=== PATIENT | female | born 1935 | race Caucasian/White ===

== ENCOUNTER 2016-10-25 12:45 | Observation (INO) | payer MEDICARE, OTHER ==
--- NOTE | ~2016-10-25 | DS ---
Discharge Summary [facility] [address] [place]. [address] NAME: ARI VILLAVICENCIO : 37 STATUS : DIS Loco PAT#: [id number] AGE: 80 ADM/REG DATE : 10/25/16 MR#: [id number] REPORT SERV DATE: 10/27/16 DICTATED BY: JR. KING WILLIAM JOHN DATE: 10/26/16 REPORT STATUS : Draft TRANSCRIBED BY: MODShahid DATE: 10/26/16 ADMISSION DATE: 10/25/2016 DISCHARGE DATE: 10/26/2016 DISCHARGE DIAGNOSES: 1. Atypical chest pain. 2. History of kidney transplant. 3. Hypertension. 4. History of aortic stenosis. OPERATIONS, PROCEDURES, AND TREATMENTS: Includes CT angiogram chest, done 10/25/2015, which showed no CTA evidence of pulmonary embolism. There was focal fibrosis or subsegmental atelectasis of the right middle lobe. There was moderately large 6 cm hiatal hernia. 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 CONSULTING PHYSICIAN: Dr. Mercado of Cardiology. DISCHARGE MEDICATIONS: Include: 1. Xanax 0.25 mg orally twice a day. 2. Vitamin B12 1000 mcg orally daily. 3. Cyclosporine 25 mg twice a day. 4. Vitamin D 50,000 units every Wednesday. 5. Metoprolol 12.5 mg orally twice a day. 6. Protonix 40 mg orally daily. 7. Coumadin 5 mg orally daily. 8. Hydralazine 25 mg every eight hours. 9. Prednisone 10 mg orally daily. 10.Albuterol metered-dose inhaler as needed. 11.[place] 10/325 t.i.d. p.r.n. 12.Integra Plus vitamin twice a day. HOSPITAL COURSE: The patient is a 80-year-old white female, presented to the emergency room on 10/25/2016 with complaint of chest pain. It was rated as 8/10, sharp, nonradiating, but had resolved by the time she was seen by Dr. Yoon in the emergency room. The patient's exam was remarkable for hypertension, CT angiogram of the chest which showed no evidence of pulmonary embolism or other acute pathology. EKG with sinus rhythm without acute ST or T- wave changes. The patient is admitted to the Clinical Decision Unit. She had serial cardiac enzymes that were unremarkable and was seen by Dr. Mercado of Cardiology who felt the patient could follow up with him in five weeks. She did have hydralazine added to her regimen. The remainder of the patient's health problems were stable and were not addressed. For discharge exam and laboratory, please see daily progress note. DISCHARGE DIET: Regular. Discharge Summary [address] [place]. [address] NAME: ARI VILLAVICENCIO : 37 STATUS : DIS Loco PAT#: [id number] AGE: 80 ADM/REG DATE : 10/25/16 MR#: [id number] REPORT SERV DATE: 10/27/16 DICTATED BY: JR. KING WILLIAM JOHN DATE: 10/26/16 REPORT STATUS : Draft TRANSCRIBED BY: EDUARDO DATE: 10/26/16 ACTIVITY: As tolerated. WJF/EDUARDO Jacob King Jr, MD / [id number]
--- NOTE | ~2016-10-25 | HP ---
History And Physical [place] [id number] [facility] [place]. [address] NAME: HANK MILLER : 37 STATUS : ADM Loco PAT#: [id number] AGE: 80 ADM/REG DATE : 10/25/16 MR#: [id number] REPORT SERV DATE: 10/25/16 DICTATED BY: FAVIO FRANCO DATE: 10/25/16 REPORT STATUS : Draft TRANSCRIBED BY: MODL DATE: 10/25/16 DATE OF ADMISSION: 10/25/2016 HISTORY OF PRESENT ILLNESS: This is a 80-year-old female, Hank Miller, who presented to [facility] [place] because of the chest pain that she developed earlier during the day. The patient reported that the pain was in the left side of her chest on a scale from 1 to 10 was 8, it lasted for several minutes, it was on the left side of the chest, it was sharp in character, and it was not radiating to left arm. The patient said it reminded her pain when she had her pulmonary embolism last year. Right now, her pain has gone. She denies any shortness of breath at rest, but she had shortness of breath on exertion, and she did not have any pain on palpation of the left chest, the pain was shooting in character, and now the pain has resolved. The patient denies any fever. No rash. No headache on admission, but currently she developed headache, and her blood pressure was elevated on presentation, it was 179/67. Dr. Leger, emergency room physician, saw this patient before I saw her and he did a CTA on the chest on this patient before hospitalist saw her. All 14-point review of systems done and negative except what is stated in the history of present illness. PAST MEDICAL HISTORY: Known for history of bilateral pulmonary embolism in May this year when the patient was in ICU, history of kidney transplantation in 2001, history of before left lower extremity DVT, polycystic kidney disease. She had a transplant for polycystic kidney disease. Hypertension, hyperlipidemia, gastroesophageal reflux disease, osteoporosis, vulvar dysplasia, status post resection, L1 compression fracture, chronic lower extremity edema. PAST SURGICAL HISTORY: Includes renal transplantation, vulvectomy, cholecystectomy, left total hip replacement, appendectomy, abdominal hysterectomy, and kyphoplasty. Her echocardiogram was done on 06/14/2016 and it showed left ventricular function to be 60%, borderline left ventricular hypertrophy, moderate diastolic dysfunction, mild left atrial enlargement, aortic sclerosis with moderate stenosis with peak velocity of 3.4 and 3.7 m/second, and mean gradient increased from 27 to 33 mmHg, and aortic valve area decreased from 1.1 to 0.8. Aortic stenosis is followed by bookkeeping service sales agent, Dr. Mercado. OTHER MEDICAL PROBLEMS: Include chronic ray lower extremity lymphedema. ALLERGIES: SHE IS ALLERGIC TO OXYCODONE, CEPHALEXIN, MOXIFLOXACIN, CODEINE, AND MELOXICAM. HOME MEDICATIONS: Include albuterol MDI 2 puffs inhaled p.r.n., Xanax 0.25 p.o. b.i.d., vitamin B12 of 1000 mcg daily, Neoral 25 p.o. b.i.d., vitamin D 50,000 units every Wednesday, [place] 10/325 one tablet p.o. three times daily p.r.n., iron 1 capsule twice a day, metoprolol 12.5 p.o. twice a day, Protonix 40 mg p.o. daily, prednisone 10 mg daily, and Coumadin 5 mg p.o. daily. SOCIAL HISTORY: No tobacco. No alcohol. No recreational drug use. History And Physical [address] [address] NAME: HANK MILLER : 37 STATUS : ADM Loco PAT#: [id number] AGE: 80 ADM/REG DATE : 10/25/16 MR#: [id number] REPORT SERV DATE: 10/25/16 DICTATED BY: FAVIO FRANCO DATE: 10/25/16 REPORT STATUS : Draft TRANSCRIBED BY: EDUARDO DATE: 10/25/16 FAMILY HISTORY: Brother had polycystic kidney disease. Mother with colon cancer and hypertension. Father had hypertension. REVIEW OF SYSTEMS: All 14-point review of systems done and negative except what is stated in the history of present illness. PHYSICAL EXAMINATION: GENERAL: Well-nourished, well-developed female, not in acute distress. Resting quietly. VITAL SIGNS: Initially her blood pressure was 179/67, and then on recheck after she was given metoprolol and clonidine 161/69, temperature 98, heart rate 63, respirations 16, and oxygen saturation 96% on room air. HEENT: Head atraumatic, normocephalic. Conjunctivae clear. Pupils are equal and reactive to light and accommodation. Extraocular muscles are intact. NECK: Supple. Trachea is midline. No supraclavicular or cervical lymphadenopathy. LUNGS: Clear to auscultation bilaterally with normal respiratory effort. CARDIOVASCULAR SYSTEM: Regular rate and rhythm. Positive severe 5/5 systolic ejection murmur. ABDOMEN: Soft, nontender, nondistended. Positive normoactive bowel sounds. EXTREMITIES: No clubbing, cyanosis. Trace edema. NEUROLOGIC: Awake, alert, and oriented in time, place, and person. Muscle strength is 5/5 bilaterally on upper and lower extremities. SKIN: Normal color and turgor. PSYCHIATRIC: Normal mood and affect. IMAGING STUDIES: CTA of the chest showed no evidence of pulmonary embolism, focal fibrosis or subsegmental atelectasis of the right middle lobe, moderate large 6 cm in diameter hiatal hernia, mild coronary artery calcification, mild relatively stable fusiform aneurysmal change, and ascending thoracic aorta measuring 3.8 cm diameter compared to 3.7 on 05/2016, status post cholecystectomy, chronic pattern of severe atrophy of the visible portion of the bilateral upper lobe kidney with multiple simple cysts and dystrophic calcification at the upper right kidney similar to prior CT. LABORATORY STUDIES: Sodium 145, potassium 3.7, chloride 112, carbon dioxide 23, BUN 19, creatinine 0.91, blood sugar 118, magnesium 2.3. Lipase 190, troponin less than 0.02. White count 7.9, hemoglobin 14, hematocrit 43.4, platelet count 158. PT 30. INR 2.9. EKG showed normal sinus rhythm with a rate of 63, positive voltage criteria for LVH, and inferior infarction of undetermined age. ASSESSMENT AND PLAN: 1. This is a very pleasant 80-year-old female with a past medical history of kidney transplant, history of aortic stenosis, history of bilateral pulmonary embolism in May this year, presented with chest pain. The chest pain sounds like atypical. We will check serial troponins. Dr. Leger, emergency room physician, spoke with Dr. Garaz, bookkeeping service sales agent on-call, who recommended the patient to be admitted as observation to Hospitalist, and the bookkeeping service sales agent will be consulted. We will put the History And Physical [address] [place]. [address] NAME: HANK MILLER : 37 STATUS : ADM Loco PAT#: [id number] AGE: 80 ADM/REG DATE : 10/25/16 MR#: [id number] REPORT SERV DATE: 10/25/16 DICTATED BY: FAVIO FRANCO DATE: 10/25/16 REPORT STATUS : Draft TRANSCRIBED BY: MODShahid DATE: 10/25/16 patient on observation status for the chest pain. We will check serial troponins. We will also ask bookkeeping service sales agent to see the patient. First troponin is negative less than 0.02. I would treat it symptomatically if she will have chest pain with nitroglycerin. 2. Hypertension. We will continue her blood pressure medications and give her hydralazine p.r.n. 3. History of kidney transplant with normal creatinine. Dr. Leger, emergency room physician, did CTA with contrast on her chest before even hospitalist saw her. We will just start her on gentle IV fluid hydration for her kidney function, but also we will watch her for her aortic stenosis. 4. Aortic stenosis which is followed by Dr. Mercado, currently stable. 5. Coumadin anticoagulation with therapeutic INR. Pharmacy will take care of the Coumadin anticoagulation. My partner will see this patient starting tomorrow morning. MG/MODL Favio Franco M.D. / [id number] CC: Jacob King Jr, MD Gary Smith, M.D.
--- NOTE | ~2016-10-25 | CN ---
Consultation Report [facility] [address] [place]. [address] NAME: ARI VILLAVICENCIO : 37 STATUS : ADM Loco PAT#: [id number] AGE: 80 ADM/REG DATE : 10/25/16 MR#: [id number] REPORT SERV DATE: 10/26/16 DICTATED BY: CATHRYN TORRES DATE: 10/26/16 REPORT STATUS : Draft TRANSCRIBED BY: EDUARDO DATE: 10/26/16 CARDIOLOGY CONSULT DATE OF CONSULTATION: REASON: Left-sided sharp chest pain. HISTORY OF PRESENT ILLNESS: This is a pleasant, 80-year-old, white female, well known to me from [facility] who has been admitted last night to Hospitalist Service at [facility] for on and off left-sided sharp chest pain of 1/10 severity which was nonexertional over the last week. The patient came to the emergency room while apparently it reminded her when she had pulmonary embolism in 05/2016, rule out for myocardial infarction. Her cardiac enzymes remains negative. She is currently chest pain free. She has a therapeutic INR of 2.9. CT of the chest has not revealed any pulmonary embolism. It reveals some mild fusiform changes of ascending and descending aorta without clear evidence of aneurysm. There is minimal calcification of coronary arteries and some atrophic, transplanted kidneys. The patient's blood pressure increased slightly while she has been off amlodipine that she was taking before. She now wants to go home and I think it is reasonable while there is no plan for further intervention. Of note, patient has stable moderate calcific aortic valve stenosis which was felt to be asymptomatic. Her last echocardiogram was in 01/2016 with previously several negative nuclear cardiac stress test. She has history of kidney transplant and has been on chronic steroids for cervical dysplasia and chronic left lower extremity lymphedema. Her INR is followed now by PCP. She was previously on Xarelto but due to some hemoptysis this has been switched to Coumadin. She has a home health nurse at home who is also checking on her. There was no exertional component of her left-sided chest discomfort. No worsening dyspnea. No palpitation or syncope. REVIEW OF SYSTEMS: The rest of review of systems negative. PAST MEDICAL HISTORY: 1. Moderate calcific aortic valve stenosis with a mean pressure gradient of 27 mmHg in 01/2016, currently asymptomatic. 2. Mild chronic dyspnea on exertion, multifactorial etiology. 3. History of pulmonary embolism in 05/2016. 4. Chronic anticoagulation for history of DVT in 2011. Currently on Coumadin and INR followed by PCP. 5. Reported previous hemoptysis with Xarelto. 6. Hypertension. 7. Hyperlipidemia. 8. Chronic kidney disease. History of kidney transplant in 2001. 9. Chronic left lower extremity lymphedema. Consultation Report [place] [address] [place]. [address] NAME: ARI VILLAVICENCIO : 37 STATUS : ADM Loco PAT#: [id number] AGE: 80 ADM/REG DATE : 10/25/16 MR#: [id number] REPORT SERV DATE: 10/26/16 DICTATED BY: CATHRYN TORRES DATE: 10/26/16 REPORT STATUS : Draft TRANSCRIBED BY: EDUARDO DATE: 10/26/16 10.Chronic low-back pain. 11.History of atypical epigastric pain. SOCIAL HISTORY: The patient is . She lives independently, has home health nurse at home. She is walking with a walker. Denies smoking, drinking alcohol, or using street drugs. FAMILY HISTORY: Negative for sudden cardiac or premature coronary artery disease in the family. ALLERGIES: OXYCODONE, KEFLEX, CODEINE, AND MELOXICAM. HOME MEDICATIONS: Albuterol as needed, Xanax 0.25 mg twice a day, cyclosporine 25 mg twice a day, vitamin D, hydrocodone 10/325 mg three times a day as needed for chronic low-back pain, iron supplement, metoprolol tartrate 12.5 mg twice a day, Protonix 40 mg once a day, prednisone 10 mg once a day, Coumadin 5 mg once a day. She was previously on amlodipine but has been discontinued reportedly by PCP. PHYSICAL EXAMINATION: GENERAL: No acute distress, elderly female, able to lay flat without any shortness of breath. VITAL SIGNS: Blood pressure 180/79, heart rate 76 regular. HEENT: Pupils reactive to light and accommodation. Moist mucosa membrane. NECK: No JVD. Normal carotid upstroke. No carotid bruits. LUNGS: Decreased breath sounds, but no crackles. HEART: S1, S2. No S3 or S4. Harsh mid-peaking systolic murmur in the precordium, maximum in the right upper sternal border, radiating to both carotids. ABDOMEN: Obese, distended, nontender. LOWER EXTREMITY: There is 1.5+ edema up to the knee on the left lower extremity with evidence of lymphedema. Decreased pedal pulses bilaterally. SKIN: Warm with normal turgor. MS: No kyphosis. NEURO/PSY: Alert and oriented. Nonfocal. DATA: CBC and electrolytes within normal limits. INR 2.9. Troponin x2 negative. CT of the chest as above. Electrocardiogram revealed sinus rhythm, 63 beats per minute. Borderline signs of LVH, nonspecific ST-segment changes. ASSESSMENT AND PLAN: 1. Atypical chest pain. 2. Remote history of pulmonary embolism without evidence of recurrence. 3. Therapeutic anticoagulation. 4. Moderate calcific aortic valve stenosis, currently symptomatic. 5. Chronic kidney disease with remote history of kidney transplant. There is no evidence of acute coronary syndrome. There is no evidence of recurrent pulmonary embolism. The Consultation Report [address] [place]. [address] NAME: ARI VILLAVICENCIO : 37 STATUS : ADM Loco PAT#: [id number] AGE: 80 ADM/REG DATE : 10/25/16 MR#: [id number] REPORT SERV DATE: 10/26/16 DICTATED BY: CATHRYN TORRES DATE: 10/26/16 REPORT STATUS : Draft TRANSCRIBED BY: EDUARDO DATE: 10/26/16 patient now wants to go home and I think it is reasonable meanwhile her blood pressure remains elevated, we will start her on hydralazine 25 mg three times a day. The dose can be titrated by primary care physician. She is on therapeutic anticoagulation. I will see her back in followup at [facility]. Thank you very much for the consult. JORDYN/EDUARDO Cathryn Torres M.D. / [id number] CC: Jacob King Jr, MD Gary Smith, M.D.
[~2016-10-25 12:45] MED LIST: ASA5GR PO; ASAB PO; ASAEC PO; AUG875 PO; BENTYL10 PO; C5 PO; CARDIZEM LA360 MG PO; CELEXA10 PO; CENTRUM PO; CENTRUM TAB1 TAB PO; CRESTOR10 PO; DEMA20 PO; DIL4TAB PO; DSS PO; FESO4 PO; FLEX PO; IRON325 MG PO; KDUR10 PO; KDUR20 PO; KLONO1 PO; KLONO5 PO; LIDODERM TOP; LIPITOR40 PO; LOP25 PO; LORTAB10 PO; LOVENOX60 SC; MULTIPLE VIT PO; MULTIVITAMI1 PO; NEORAL25 MG OR; NEORAL25 MG PO; NORV5 PO; OS500+D PO; OTC SUPPLEMENTS PO; P10 PO; PHAZYME PO; POT GLUCONAT550 M1 OR; POTASSIUM95 MG PO; PREDNISONE2.5 MG PO; PROAIR HFA INH; PROTONIX PO; ULTRAM ER200 MG PO; ULTRAM50 PO; VITAMIN C PO; VITAMIN D1000 UNI1 PO; VITD PO; VOLTAREN1 % TOP; VYTORIN 10/40 T1 TAB PO; XARELTO15 MG PO
[2016-10-25 14:28] LABS: BASOPHILS 0.4 %; BASOPHILS ABSOLUTE 0.03 10/3/uL (0.0-0.16); EOSINOPHILS 0.8 %; EOSINOPHILS ABSOLUTE 0.06 10/3/uL (0.0-0.53); ER CBC TAT 0 Hrs 03 Mins; IMMATURE GRANULOCYTES 0.3 %; IMMATURE GRANULOCYTES ABSOLUTE 0.02 10/3/uL (0.0-0.11); LYMPHOCYTES 11.1 %; LYMPHOCYTES ABSOLUTE 0.88 10/3/uL (0.67-4.30); MONOCYTES 2.9 %; MONOCYTES ABSOLUTE 0.23 10/3/uL (0.21-1.20); NEUTROPHILS 84.5 %; NEUTROPHILS ABSOLUTE 6.72 10/3/uL (2.02-8.40); RBC DISTRIBUTION WIDTH 18.4 % (12.0-16.0); RED CELL COUNT 4.87 10/6/uL (4.0-5.6); WHITE BLOOD CELLS 7.9 10/3/uL (4.5-10.5)
[2016-10-25 14:29] LABS: HEMATOCRIT 43.4 % (36.0-48.0); MANUAL DIFF NO %; MEAN CORPUS HGB CONC 32.3 g/dL (32.0-36.0); MEAN CORPUSCULAR HEMOGLOB 28.7 pg (26.0-34.0); MEAN CORPUSCULAR VOLUME 89.1 fL (80-100); PLATELET COUNT 158 10/3/uL (150-400)
[2016-10-25 14:36] LABS: INTERNATIONAL NORMAL RATI 2.9 UNITS (-); PARTIAL THROMBO TIME 35.1 SEC (22.5-37.2)
[2016-10-25 14:46] LABS: CHEST PAIN PROFILE TAT 0 Hrs 21 Mins; CHLORIDE, SERUM 112 MMOL/L (96-112); CO2 (CARBON DIOXIDE) 23 MMOL/L (24-34); CREATININE 0.91 MG/DL (0.55-1.02); GFR AFRICAN AMERICAN 70 ML/MIN (>=60); GFR NON AFRICAN AMERICAN 60 ML/MIN (>=60); GLUCOSE, SERUM 118 MG/DL (60-99); POTASSIUM, SERUM 3.7 MMOL/L (3.5-5.3); TROPONIN I <0.02 NG/ML (<0.05)
[2016-10-25 14:47] LABS: BUN (BLOOD UREA NITROGEN) 19 MG/DL (6-23); CALCIUM, SERUM 8.5 MG/DL (8.5-10.4); SODIUM, SERUM 145 MMOL/L (135-148)
[2016-10-25] MEDS ORDERED: CYANO1000T PO (18:17)
[2016-10-25] MEDS ORDERED: NORCO1 TAB PO (18:18)
[2016-10-25] MEDS ORDERED: INTEGRA PLUS C1 EACH PO (18:19)
[2016-10-25] MEDS ORDERED: PROTONIX PO (18:20)
[2016-10-25] MEDS ORDERED: X25 PO (18:21)
[2016-10-26 04:44] LABS: BASOPHILS 0.5 %; BASOPHILS ABSOLUTE 0.03 10/3/uL (0.0-0.16); EOSINOPHILS ABSOLUTE 0.12 10/3/uL (0.0-0.53); HEMATOCRIT 41.8 % (36.0-48.0); HEMOGLOBIN 13.3 g/dL (12.0-16.0); IMMATURE GRANULOCYTES 0.3 %; IMMATURE GRANULOCYTES ABSOLUTE 0.02 10/3/uL (0.0-0.11); LYMPHOCYTES 24.7 %; LYMPHOCYTES ABSOLUTE 1.51 10/3/uL (0.67-4.30); MEAN CORPUS HGB CONC 31.8 g/dL (32.0-36.0); MEAN CORPUSCULAR HEMOGLOB 28.2 pg (26.0-34.0); MEAN CORPUSCULAR VOLUME 88.7 fL (80-100); MEAN PLATELET VOLUME 9.4 fL (9.2-13.0); MONOCYTES 7.5 %; MONOCYTES ABSOLUTE 0.46 10/3/uL (0.21-1.20); NEUTROPHILS ABSOLUTE 3.98 10/3/uL (2.02-8.40); PLATELET COUNT 182 10/3/uL (150-400); RBC DISTRIBUTION WIDTH 18.4 % (12.0-16.0); RED CELL COUNT 4.71 10/6/uL (4.0-5.6); WHITE BLOOD CELLS 6.1 10/3/uL (4.5-10.5)
[2016-10-26 04:48] LABS: MANUAL DIFF NO %
[2016-10-26 05:01] LABS: BUN (BLOOD UREA NITROGEN) 18 MG/DL (6-23); CALCIUM, SERUM 8.5 MG/DL (8.5-10.4); CHLORIDE, SERUM 113 MMOL/L (96-112); CO2 (CARBON DIOXIDE) 25 MMOL/L (24-34); CREATININE 0.83 MG/DL (0.55-1.02); GFR AFRICAN AMERICAN 78 ML/MIN (>=60); GFR NON AFRICAN AMERICAN 68 ML/MIN (>=60); INTERNATIONAL NORMAL RATI 2.8 UNITS (-); PROTIME (NOT ORD) 28.9 SEC (12.0-14.5); SODIUM, SERUM 146 MMOL/L (135-148); TROPONIN I 0.02 NG/ML (<0.05)
[2016-10-26 05:02] LABS: GLUCOSE, SERUM 85 MG/DL (60-99)
[2016-10-26] MEDS ORDERED: APRES25 PO (15:14)
== END 2016-10-26 16:40 | disposition home or self-care (01) ==
LOC: ER 12:45 → CDU1 19:28 → CDU2 20:01
PROVIDERS: Emergency Medicine; Internal Medicine
DX: R07.89 Other chest pain (principal); I12.9 Hypertensive chronic kidney disease with stage 1 through stage 4 chronic kidney disease, or unspecified chronic kidney disease; N18.9 Chronic kidney disease, unspecified; E78.5 Hyperlipidemia, unspecified; K31.9 Disease of stomach and duodenum, unspecified; M81.0 Age-related osteoporosis without current pathological fracture; Z94.0 Kidney transplant status; Z86.79 Personal history of other diseases of the circulatory system; Z79.52 Long term (current) use of systemic steroids; Z79.891 Long term (current) use of opiate analgesic; Z79.899 Other long term (current) drug therapy; Z86.711 Personal history of pulmonary embolism; Z90.49 Acquired absence of other specified parts of digestive tract; Z96.642 Presence of left artificial hip joint; Z90.710 Acquired absence of both cervix and uterus; Z98.890 Other specified postprocedural states; Z88.5 Allergy status to narcotic agent; Z88.8 Allergy status to other drugs, medicaments and biological substances; Z86.73 Personal history of transient ischemic attack (TIA), and cerebral infarction without residual deficits
CPT/HCPCS: 71275; 80048; 83690; 83735; 84484; 85025; 85610; 85730; 93005; 96374; 96376; 99285; A9270-GY; G0378; J0360; J7515; Q9967